=== PATIENT | female | born 1960 | race Caucasian/White ===

== ENCOUNTER 2018-04-04 06:32 | Day surgery (SDC) | payer OTHER | END 2018-04-04 17:21 | disposition home or self-care (01) | LOC: GIL 06:32 | DX: Z12.11 Encounter for screening for malignant neoplasm of colon (principal); K29.50 Unspecified chronic gastritis without bleeding; K62.1 Rectal polyp; I10 Essential (primary) hypertension | CPT/HCPCS: 43239; 88305; 88312 ==

== ENCOUNTER 2018-11-23 05:38 | Inpatient (IN) | payer OTHER ==
[2018-11-23] MEDS ORDERED: ONDANSETRON 4 MG INJ IV (06:30)
[2018-11-23] MEDS ORDERED: ACETAMINOPHEN 325 MG TAB PO (06:30)
[2018-11-23 07:42] LABS: ADD MAN DIFF? NO
[2018-11-23 07:46] LABS: BASOPHIL # 0.1 10^3/ul (0.0-0.1); BASOPHILS % 0.8 % (0.0-2.0); EOSINOPHILS # 0.3 10^3/ul (0.0-0.5); EOSINOPHILS % 2.6 % (0.0-7.0); HEMATOCRIT 43.9 % (37.0-47.0); HEMOGLOBIN 14.6 g/dl (12.0-16.0); LYMPHOCYTES # 3.7 10^3/ul (0.8-2.9); LYMPHOCYTES % 36.6 % (15.0-51.0); MEAN CORPUSCULAR HEMOGLOBIN 29.4 pg (29.0-33.0); MEAN CORPUSCULAR HGB CONC 33.3 g/dl (32.0-37.0); MEAN CORPUSCULAR VOLUME 88.5 fl (82.0-101.0); MEAN PLATELET VOLUME 10.3 fl (7.4-10.4); MONOCYTES % 9.7 % (0.0-11.0); NEUTROPHILS % 49.8 % (39.0-77.0); PLATELET COUNT 301 10^3/UL (140-415); RED BLOOD COUNT 4.96 10^6/ul (4.20-5.40); RED CELL DISTRIBUTION WIDTH 13.2 % (11.5-14.5)
[2018-11-23 08:13] LABS: CHOL/HDL RATIO 5.9 RATIO; HDL CHOLESTEROL 39 mg/dl (37-92); LDL CHOLESTEROL,CALCULATED 142 mg/dl; TRIGLYCERIDES 254 mg/dl (0-149)
[2018-11-23 08:13] LABS: CHOLESTEROL 232 mg/dl (100-200)
[2018-11-23 08:29] LABS: B-TYPE NATRIURETIC PEPTIDE 155 PG/ML (0-125)
[2018-11-23] MEDS: ASPIRIN 81 MG TAB PO (09:27)
[2018-11-23] MEDS: LISINOPRIL 20 MG TAB PO (09:28)
[2018-11-23 14:28] LABS: AMPHETAMINE/METHAMPHETAMINE Negative (NEGATIVE); BARBITURATES Negative (NEGATIVE); BENZODIAZEPINES Negative (NEGATIVE); CANNABINOIDS Negative (NEGATIVE); COCAINE Negative (NEGATIVE); OPIATES Negative (NEGATIVE)
[2018-11-23] MEDS ORDERED: hydrALAzine 20 MG INJ IV (17:00)
[2018-11-23] MEDS: HYDROCHLOROTHIAZIDE 25 MG TAB PO (17:41)
[2018-11-23 18:49] LABS: TROPONIN-I < 0.012 ng/ml (0.000-0.120)
[2018-11-23] MEDS: ATORVASTATIN 10 MG TAB PO (20:41)
[2018-11-24 01:28] LABS: TROPONIN-I < 0.012 ng/ml (0.000-0.120)
[2018-11-24] MEDS: PANTOPRAZOLE (EC) 40 MG TAB PO (06:13)
[2018-11-24 06:42] LABS: ADD MAN DIFF? NO
[2018-11-24 06:57] LABS: BASOPHIL # 0.1 10^3/ul (0.0-0.1); BASOPHILS % 0.6 % (0.0-2.0); EOSINOPHILS # 0.3 10^3/ul (0.0-0.5); EOSINOPHILS % 3.7 % (0.0-7.0); HEMATOCRIT 43.1 % (37.0-47.0); HEMOGLOBIN 14.2 g/dl (12.0-16.0); MEAN CORPUSCULAR HEMOGLOBIN 29.6 pg (29.0-33.0); MEAN CORPUSCULAR HGB CONC 32.9 g/dl (32.0-37.0); MEAN PLATELET VOLUME 10.3 fl (7.4-10.4); MONOCYTE # 0.8 10^3/ul (0.3-0.9); MONOCYTES % 9.9 % (0.0-11.0); NEUTROPHIL # 3.6 10^3/ul (1.6-7.5); NEUTROPHILS % 46.4 % (39.0-77.0); PLATELET COUNT 276 10^3/UL (140-415); RED BLOOD COUNT 4.79 10^6/ul (4.20-5.40); RED CELL DISTRIBUTION WIDTH 12.8 % (11.5-14.5)
[2018-11-24 06:57] LABS: WHITE BLOOD COUNT 7.7 10^3/ul (4.8-10.8)
[2018-11-24 07:12] LABS: HEMOGLOBIN A1C 5.5 % (0-5.9)
[2018-11-24 07:23] LABS: ANION GAP 6 (5-13); BLOOD UREA NITROGEN 15 mg/dl (7-20); CALCIUM 9.4 mg/dl (8.4-10.2); CARBON DIOXIDE 30 mmol/L (21-31); CHLORIDE 105 mmol/L (97-110); Estimated GFR > 60 mL/min (>60); GLUCOSE 95 mg/dl (70-220); POTASSIUM 4.7 mmol/L (3.5-5.1); SODIUM 141 mmol/L (135-144)
[2018-11-24 07:24] LABS: TROPONIN-I < 0.012 ng/ml (0.000-0.120)
[2018-11-24] MEDS: LISINOPRIL 20 MG TAB PO (08:58)
[2018-11-24] MEDS: HYDROCHLOROTHIAZIDE 25 MG TAB PO (08:58)
[2018-11-24] MEDS: ASPIRIN 81 MG TAB PO (08:58)
[2018-11-24] MEDS: ERGOCALCIFEROL 50,000 UNIT CAP PO (13:56)
== END 2018-11-24 14:25 | disposition home or self-care (01) | DRG 305 ==
LOC: TEL 05:38
PROVIDERS: Internal Medicine
DX: I16.0 Hypertensive urgency (principal); R42 Dizziness and giddiness; E78.5 Hyperlipidemia, unspecified; E66.3 Overweight; R00.1 Bradycardia, unspecified
CPT/HCPCS: 70450; 70551; 80048; 80061; 80307; 82652; 83036; 83880; 84443; 84484; 85025; 93005; 93306; 93880